=== PATIENT | male | born 1975 | race Caucasian/White ===

== ENCOUNTER 2023-10-23 22:16 | Emergency (ER) | payer MEDICAID ==
[~2023-10-23] VITALS: Ht 188 cm; Wt 136.7 kg
[2023-10-23 22:32] VITALS: BP 152/82; PULSE 76; RESP 18; O2SAT 95
== END 2023-10-24 02:11 | disposition left against medical advice (07) ==
LOC: ER 22:16
DX: H92.01 Otalgia, right ear (principal); Z53.21 Procedure and treatment not carried out due to patient leaving prior to being seen by health care provider

== ENCOUNTER 2024-04-04 22:35 | Emergency (ER) | payer MEDICAID ==
[~2024-04-04] VITALS: Ht 188 cm; Wt 135.9 kg
[2024-04-04 23:12] VITALS: BP 110/79; PULSE 91; RESP 17; TEMP 98.3; O2SAT 95
[2024-04-05] MEDS: KETOROLAC TROMETH 60MG/2ML VIAL IM ONE (02:00)
[2024-04-05] MEDS: DexAMETHasone SOD PHOS 10MG/1ML VIAL INJ IM ONE (02:00)
[2024-04-05] MEDS: predniSONE 20 MG TAB PO ONE (02:19)
[2024-04-05] MEDS ORDERED: HYDR-4902 PO (03:11)
[2024-04-05] MEDS ORDERED: METH4PAK PO (03:11)
[2024-04-05] MEDS ORDERED: METH-1182 PO (03:11)
== END 2024-04-05 03:27 | disposition home or self-care (01) ==
LOC: ER 22:35
DX: M54.16 Radiculopathy, lumbar region (principal); I10 Essential (primary) hypertension; Z88.0 Allergy status to penicillin
CPT/HCPCS: 72100; 73502; 99284; J1100; J1885; J7512

== ENCOUNTER 2024-04-10 19:54 | Emergency (ER) | payer MEDICAID ==
[~2024-04-10] VITALS: Ht 188 cm; Wt 135.5 kg
[~2024-04-10 19:54] MED LIST: METH-1182 PO; METH4PAK PO
[2024-04-10 21:10] VITALS: BP 118/87; PULSE 96; RESP 18; TEMP 98.4; O2SAT 94
--- NOTE | 2024-04-10 21:19 | DVH ---
CT LS SPINE WO CONTRAST INDICATION: : 48 old Male left radiculopathy EXAM DATE: 04/10/2024 08:45 PM COMPARISON: None RADIATION DOSE: CTDIvol: 38 mGy, DLP: 1556 mGy*cm PROCEDURE: Utilizing the CT scanner, contiguous axial scans were obtained through the lumbar spine. C oronal and sagittal reformatted images were then generated. All CT scans at this medical facility are performed using dose modulation techniques as appropriate t o a performed exam including the following: Automated exposure control was utilized; adjustment of th e MA and/or KV according to patient size; and use of iterative reconstruction technique. FINDINGS: There are 5 lumbar segments. The lumbar vertebral body heights and alignment are maintained . The intervertebral disc spaces are narrowed and degenerative. The cortical margins are intact. The paraspinal soft tissues are normal. On axial images: there is multilevel posterior disc bulge without significant narrowing of the centra l canal. Mild to moderate bilateral neural foramina narrowing is seen at L4-5 and L5-S1. Mild degener ative changes of the facet joints is noted. IMPRESSION: No acute abnormal CT findings of the lumbar spine. Mild to moderate bilateral neural foramina narrowing is seen at L4-5 and L5-S1.
--- NOTE | 2024-04-10 21:38 | ED.PDOC ---
Back pain HPI HPI Comments THIS IS A 48-YEAR-OLD MALE PRESENTS TO THE ED CHIEF COMPLAINT LEFT LOWER BACK PAIN. PATIENT WAS SEEN HERE IN THE ER YESTERDAY FOR A FALL WELL. 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 CURRENTLY AMBULATES WITH A CANE. REPORTS CHRONIC HISTORY OF LOWER BACK PAIN AND HIP PAIN. PATIENT DESCRIBES PAIN SHARP SHOOTING PAIN STARTING IN HIS LEFT LOWER BACK RADIATING LATERAL AROUND HIP INTO HIS GROIN DOWN HIS BUTTOCKS AND ALL THE WAY DOWN HIS LEG TO HIS FOOT. RATES PAIN 7/10 ON PAIN SCALE. NUMBNESS, WEAKNESS, LOSS OF BOWEL OR BLADDER CONTROL, OR SADDLE ANESTHESIA. Chief Complaint: Lower Extremity Time Seen by MD: 20:11 Reviewed Notes: Nurses Notes, Medications, Allergies Allergies: Coded Allergies: Bee Venom (Verified Allergy, Unknown, 04/10/24) Penicillins (Verified Allergy, Unknown, 04/10/24) Home Meds Active Scripts Methylprednisolone (Medrol Dosepak) 4 Mg Silas, 4 MG PO UD for 6 Days, #21 TAB UAD Prov:ARISTEO SMITHK [employer] 04/10/24 Methocarbamol (Methocarbamol) 750 Mg Tab, 1 TAB PO HS PRN for 5 Days, #5 TAB Prov:ARISTEO SMITHK [employer] 04/05/24 Methylprednisolone (Medrol Dosepak) 4 Mg Silas, 4 MG PO UD for 6 Days, #21 TAB UAD Prov:EVANGELIST SMITH [employer] 04/05/24 Information Source: Patient Mode of Arrival: Ambulatory Past Medical History PAST MEDICAL HISTORY: HTN Family History Family History: Reviewed,noncontributory to illness Social History Smoker: Non-Smoker Alcohol: Denies ETOH Use Drugs: Denies Drug Use Constitutional: denies: chills, diaphoresis, fatigue, fever, malaise, sweats, weakness, others EENTM: denies: blurred vision, double vision, ear bleeding, ear discharge, ear drainage, ear pain, ear ringing, eye pain, eye redness, hearing loss, mouth pain, mouth swelling, nasal discharge, nose bleeding, nose congestion, nose pain, photophobia, tearing, throat pain, throat swelling, voice changes, others Respiratory: denies: cough, hemoptysis, orthopnea, SOB at rest, shortness of breath, SOB with excertion, stridor, wheezing, others Cardiovascular: denies: chest pain, dizzy spells, diaphoresis, Dyspnea on exertion, edema, irregular heart beat, left arm pain, lightheadedness, pa lpitations, PND, syncope, others Gastrointestinal: denies: abdomen distended, abdominal pain, blood streaked bowels, constipated, diarrhea, dysphagia, difficulty swallowing, hematemesis, melena, nausea, poor appetite, poor fluid intake, rectal bleeding, rectal pain, vomiting, others Genitourinary: denies: burning, dysuria, flank pain, frequency, hematuria, incontinence, penile discharge, penile sore, pain, testicle pain, testicle swelling, urgency, others Neurological: denies: dizziness, fainting, headache, left sided numbness, left sided weakness, numbness, paresthesia, pre-existing deficit, right sided numbness, right sided weakness, seizure, speech problems, tingling, tremors, weakness, others Musculoskeletal: reports: back pain; denies: gout, joint pain, joint swelling, muscle pain, muscle stiffness, neck pain, others Integumetry: denies: bruises, change in color, change in hair/nails, dryness, laceration, lesions, lumps, rash, wounds, others Allergic/Immunocompromised: denies: Difficulty Healing, Frequent Infections, Hives, Itching, others Hematologic/Lymphatic: denies: anemia, blood clots, easy bleeding, easy bruising, swollen glands, others Endocrine: denies: excessive hunger, excessive sweating, excessive thirst, excessive urination, flushing, intolerance to cold, intolerance to heat, unexplained weight gain, unexplained weight loss, others Psychiatric: denies: anxiety, bipolar disorder, depression, hopeless, panic disorder, schizophrenia, sleepless, suicidal, others Physical Exam General Appearance: No Apparent Distress, Normal HEENT: Pharynx Normal Neck: Full Range of Motion, Non-Tender Respiratory: Lungs Clear, No Respiratory Distress, Normal Breath Sounds Cardiovascular: No Murmur, Normal Peripheral Pulses, Regular Rate/Rhythm Breast Exam: Deferred Gastrointestinal: Non Tender, Soft Genitalia: Deferred Pelvic: Deferred Rectal: Deferred Extremities: Normal capillary refill, Normal inspection, Normal range of motion , Non-tender, No pedal edema Musculoskeletal : Location: Bilateral (MODERATE TENDERNESS PALPATED OVER L 2 THROUGH L5 LUMBAR SPINE WITHOUT CREPITUS OR STEP-OFFS. NO NOTED ABRASIONS, LESIONS, ECCHYMOSIS OR LACERATIONS. POSITIVE STRAIGHT LEG RAISE LEFT SIDE FOLLOWING L4-L5 DERMATOME. NEGATIVE STRAIGHT LEG RIGHT SIDE. STRENGTH SENSORY MOTION INTACT. POSITIVE PEDAL PULSES.) Apperance: Normal Neurologic: Alert, senior ui developer II-XII nml as Tested, No Motor Deficits, Normal Affect, Normal Mood, No Sensory Deficits Cerebellar Function: Normal Reflexes: Normal Skin: Dry, Normal Color, Warm Lymphatic: No Adenopathy Was a procedure done? Was a procedure done?: No Back Pain Differential Dx Differential Diagnosis: Fracture, Musculoskeletal Pain X-Ray, Labs, Meds, VS Vital Signs Date Time Temp Pulse Resp B/P (MAP) Pulse Ox O2 Delivery O2 Flow Rate FiO2 04/10/24 21:10 96 18 94 Room Air 04/10/24 21:10 98.4 96 18 118/87 (97) 94 98.4 04/10/24 20:01 98.4 93 18 136/92 (107) 96 X-Ray, Labs, Meds, VS Comment LUMBAR SPINE MRI SHOWS: multilevel posterior disc bulge without significant narrowing of the central canal. Mild to moderate bilateral neural foramina narrowing is seen at L4-5 and L5-S1. Mild degenerative changes of the facet joints L4-L5, L5-S1 RADICULOPATHY LIKELY ASSOCIATED WITH MODERATE BILATERAL NEURAL FORAMINAL NARROWING. WE WILL START PATIENT ON MEDROL DOSEPAK. PATIENT REFUSED INJECTIONS AT THIS TIME. MUSCLE RELAXER ALSO SENT ADVISED PATIENT TO FILL IT FROM LAST VISIT. ADVISED PATIENT TO FOLLOW UP WITH HIS PRIMARY IN 2-3 DAYS RECOMMEND MRI IF SYMPTOMS CONTINUE. CONSIDER PAIN MANAGEMENT WELL FOR INJECTIONS. ADVISED TO RETURN TO THE ER FOR INCREASING PAIN, NUMBNESS, WEAKNESS, LOSS OF BOWEL BLADDER CONTROL, OR SADDLE ANESTHESIA. PATIENT AGREES WITH DISCHARGE PLAN OF CARE. Time of 1ST Reevaluation: 21:45 Reevaluation 1ST: Improved Patient Education/Counseling: Diagnosis, Treatment, Prognosis, Need For Follow Up Family Education/Counseling: No Family Present Departure 1 Departure Time of Disposition: 21:35 Impression: Primary Impression: Lumbar radiculopathy, acute Disposition: HOME / SELF CARE / HOMELESS Condition: Stable e-Prescriptions Methylprednisolone (Medrol Dosepak) 4 Mg Silas 4 MG PO UD for 6 Days, #21 TAB UAD Prov: EVANGELIST SMITH 04/10/24 Discharged With: Self Critical Care Note Critical Care Time?: No Stability Stability form required: EVANGELIST Perkins [facility] Apr 10, 2024 21:38
== END 2024-04-10 21:49 | disposition home or self-care (01) ==
LOC: ER 19:54
DX: M54.16 Radiculopathy, lumbar region (principal); I10 Essential (primary) hypertension; Z88.0 Allergy status to penicillin; Z88.8 Allergy status to other drugs, medicaments and biological substances; Z79.899 Other long term (current) drug therapy
CPT/HCPCS: 72131

== ENCOUNTER 2024-10-28 20:46 | Emergency (ER) | payer MEDICAID ==
[~2024-10-28] VITALS: Ht 188 cm; Wt 141.0 kg
[2024-10-28 21:39] VITALS: BP 152/85; PULSE 83; RESP 18; TEMP 98.2; O2SAT 97
--- NOTE | 2024-10-28 21:44 | ED.PDOC ---
Musculoskeletal HPI Comments 49-year-old male presents to ER with complaints of left forearm pain x1 week. Patient reports he started experiencing left forearm pain one week ago that started while he was reaching into a drawer with his left arm to pull out a "Ethernet cable". He rates his current pain an 8/10 to left forearm with radiation towards the left hand. Notes he has been taking [place] for his pain with slight relief. Patient presents to ER ambulatory, in no distress. Denies any further symptoms/complaints Chief Complaint: Upper Extremity Time Seen by MD: 21:08 Primary Care Provider: CAREY Reviewed Notes: Nurses Notes, Medications, Allergies Allergies: Coded Allergies: Bee Venom (Verified Allergy, Unknown, 04/10/24) Penicillins (Verified Allergy, Unknown, 04/10/24) Home Meds Active Scripts Methylprednisolone (Medrol Dosepak) 4 Mg Silas, 4 MG PO UD for 6 Days, #21 TAB UAD Prov:ARISTEO SMITHK [facility] 04/10/24 Methocarbamol (Methocarbamol) 750 Mg Tab, 1 TAB PO HS PRN for 5 Days, #5 TAB Prov:SARAHEVANGELIST Stewart [facility] 04/05/24 Methylprednisolone (Medrol Dosepak) 4 Mg Silas, 4 MG PO UD for 6 Days, #21 TAB UAD Prov:EVANGELIST SMITH [facility] 04/05/24 Information Source: Patient Mode of Arrival: Ambulatory Past Medical History PAST MEDICAL HISTORY: Cancer (KIDNEY), COPD, HTN Surgical History: Denies all surgeries Family History Family History: Unknown Social History Smoker: Non-Smoker Alcohol: Denies ETOH Use Drugs: Denies Drug Use Lives In: Home Constitutional: denies: chills, diaphoresis, fatigue, fever, malaise, sweats, weakness, others EENTM: denies: blurred vision, double vision, ear bleeding, ear discharge, ear drainage, ear pain, ear ringing, eye pain, eye redness, hearing loss, mouth pain, mouth swelling, nasal discharge, nose bleeding, nose congestion, nose pain, photophobia, tearing, throat pain, throat swelling, voice changes, others Respiratory: denies: cough, hemoptysis, orthopnea, SOB at rest, shortness of breath, SOB with excertion, stridor, wheezing, others Cardiovascular: denies: chest pain, dizzy spells, diaphoresis, Dyspnea on exertion, edema, irregular heart beat, left arm pain, lightheadedness, palpita tions, PND, syncope, others Gastrointestinal: denies: abdomen distended, abdominal pain, blood streaked shelia wels, constipated, diarrhea, dysphagia, difficulty swallowing, hematemesis, melena, nausea, poor appetite, poor fluid intake, rectal bleeding, rectal pain, vomiting, others Genitourinary: denies: burning, dysuria, flank pain, frequency, hematuria, incontinence, penile discharge, penile sore, pain, testicle pain, testicle swelling, urgency, others Neurological: denies: dizziness, fainting, headache, left sided numbness, left sided weakness, numbness, paresthesia, pre-existing deficit, right sided numbness, right sided weakness, seizure, speech problems, tingling, tremors, weakness, others Musculoskeletal: reports: others (As stated in HPI) Integumetry: denies: bruises, change in color, change in hair/nails, dryness, laceration, lesions, lumps, rash, wounds, others Allergic/Immunocompromised: denies: Difficulty Healing, Frequent Infections, Hives, Itching, others Hematologic/Lymphatic: denies: anemia, blood clots, easy bleeding, easy bruising, swollen glands, others Endocrine: denies: excessive hunger, excessive sweating, excessive thirst, excessive urination, flushing, intolerance to cold, intolerance to heat, unexplained weight gain, unexplained weight loss, others Psychiatric: denies: anxiety, bipolar disorder, depression, hopeless, panic disorder, schizophrenia, sleepless, suicidal, others Physical Exam General Appearance: No Apparent Distress HEENT: PERRL/EOMI Neck: Full Range of Motion, Non-Tender, Normal Respiratory: Chest Non-Tender, Lungs Clear, No Accessory Muscle Use, No Respiratory Distress, Normal Breath Sounds Cardiovascular: No Murmur, No Gallop, Regular Rate/Rhythm Breast Exam: Deferred Gastrointestinal: NOT DONE Genitalia: Deferred Pelvic: Deferred Rectal: Deferred Extremities: Normal capillary refill, Normal range of motion Musculoskeletal : Extremity Location: Forearm (Slight TTP centralized to left forearm noted. No bony tenderness/skin changes/deformity noted. Pulses intact) Neurologic: Alert, No Motor Deficits, Normal Affect, Normal Mood, No Sensory Deficits Cerebellar Function: Normal Reflexes: Normal Skin: Dry, Normal Color, Warm Peripheral Pulses: 2+ Radial (R), 2+ Radial (L), 2+ Brachial (R), 2+ Brachial (L) Lymphatic: No Adenopathy Was a procedure done? Was a procedure done?: No Sedation Sedation?: No Differential Diagnosis EXT Differential Diagnosis: Fracture, Dislocation, Neurovascular injury X-Ray, Labs, Meds, VS Vital Signs Date Time Temp Pulse Resp B/P (MAP) Pulse Ox O2 Delivery O2 Flow Rate FiO2 10/28/24 21:39 98.2 83 18 152/85 (107) 97 98.2 10/28/24 21:22 98.2 83 18 152/85 (107) 97 98.2 Patient neurovascularly intact Advised on elevation and alternate ice on/off as needed for pain Advised to follow up with PCP in 1-2 days Patient verbalized understanding and agreeable with current plan of care Advised to return to ER immediately if symptoms worsen Time of 1ST Reevaluation: 21:20 Reevaluation 1ST: N/A Patient Education/Counseling: Diagnosis, Treatment, Prognosis, Need For Follow Up Family Education/Counseling: No Family Present Departure 1 Departure Time of Disposition: 21:42 Impression: Primary Impression: Muscle strain of left forearm Qualified Codes: S56.912A - Strain of unspecified muscles, fascia and tendons at forearm level, left arm, initial encounter Disposition: HOME / SELF CARE / HOMELESS Condition: Stable Discharged With: Self Critical Care Note Critical Care Time?: No Stability Stability form required: No Heart Score Heart Score: Heart Score Response (Comments) Value History N/A 0 EKG N/A 0 Age N/A 0 Risk Factors N/A 0 Troponin N/A 0 Total 0 JOSE ALFREDO MALDONADO October 28, 2024 21:44
== END 2024-10-28 21:49 | disposition home or self-care (01) ==
LOC: ER 20:46
DX: S56.912A Strain of unspecified muscles, fascia and tendons at forearm level, left arm, initial encounter (principal); I10 Essential (primary) hypertension; J44.9 Chronic obstructive pulmonary disease, unspecified; Z85.528 Personal history of other malignant neoplasm of kidney; Z88.0 Allergy status to penicillin; Z91.030 Bee allergy status; Z79.899 Other long term (current) drug therapy; X58.XXXA Exposure to other specified factors, initial encounter; Y93.89 Activity, other specified; Y92.89 Other specified places as the place of occurrence of the external cause; Y99.8 Other external cause status

== ENCOUNTER 2025-01-06 15:00 | Outpatient (CLI) | payer MEDICAID ==
[2025-01-06] MEDS ORDERED: ALBUTEROL SULF 2.5 MG/0.5ML(0.5%) NEB SOLN ONE (15:20)
== END 2025-01-06 17:00 | disposition home or self-care (01) ==
LOC: RT 15:00
PROVIDERS: ATTEND Internal Medicine Pulmonary Disease
DX: J44.9 Chronic obstructive pulmonary disease, unspecified (principal); R06.00 Dyspnea, unspecified
CPT/HCPCS: 94010; 94618; 94729

== ENCOUNTER 2025-01-24 21:02 | Emergency (ER) | payer MEDICAID ==
[~2025-01-24] VITALS: Ht 188 cm; Wt 139.9 kg
--- NOTE | 2025-01-24 22:04 | DVH ---
CLINICAL INDICATION: pain TECHNIQUE: 2 radiographic views of the lumbar spine were obtained. Comparison: CT LS SPINE WO CONTRAST on DOS: 04/10/24, XY LUMBAR SPINE 3 VIEW on DOS: 04/05/24 FINDINGS/IMPRESSION: Bony spondylosis noted throughout the lumbar spine with degenerative disc changes. There are no compressed vertebra.
[2025-01-24] MEDS ORDERED: TIZA-142 PO (22:34)
--- NOTE | 2025-01-24 22:34 | ED.PDOC ---
Back pain HPI Chief Complaint: Back Pain Time Seen by MD: 21:27 Primary Care Provider: CAREY Reviewed Notes: Nurses Notes, Medications, Allergies Allergies: Coded Allergies: Bee Venom (Verified Allergy, Unknown, 04/10/24) Penicillins (Verified Allergy, Unknown, 04/10/24) Home Meds Active Scripts Methylprednisolone (Medrol Dosepak) 4 Mg Silas, 4 MG PO UD for 6 Days, #21 TAB UAD Prov:EVANGELIST SMITH [employer] 04/10/24 Methocarbamol (Methocarbamol) 750 Mg Tab, 1 TAB PO HS PRN for 5 Days, #5 TAB Prov:EVANGELIST SMITH [employer] 04/05/24 Methylprednisolone (Medrol Dosepak) 4 Mg Silas, 4 MG PO UD for 6 Days, #21 TAB UAD Prov:EVANGELIST SMITH [employer] 04/05/24 Information Source: Patient Mode of Arrival: Ambulatory Past Medical History PAST MEDICAL HISTORY: Cancer, COPD, HTN Surgical History: Denies all surgeries Family History Family History: Unknown Social History Smoker: Non-Smoker Alcohol: Denies ETOH Use Drugs: Denies Drug Use Lives In: Home X-Ray, Labs, Meds, VS Vital Signs Date Time Temp Pulse Resp B/P (MAP) Pulse Ox O2 Delivery O2 Flow Rate FiO2 01/24/25 21:13 98.7 87 19 138/88 96 98.7 Reevaluation 1ST: Unchanged Reevaluation 2ND: Improved Patient Education/Counseling: Diagnosis, Treatment, Prognosis, Need For Follow Up Family Education/Counseling: Diagnosis, Treatment, Prognosis, Need For Follow Up SEPSIS Sepsis Screen Date sepsis recognized/suspect: Jan 24, 2025 Time Sepsis recognized/suspect: 2109 Recent Procedure: No On Antibiotic Therapy: No Respiratory Rate >20: No Heart Rate >90: No Temp<36 C (96.8 F) or >38.3 C: No SBP <90 or MAP <65 mmHG: No New Acute Mental Status Change: No Is the patient on CPAP, BIPAP,: No Physician Orders Lumbar Spine 3 View (01/24/25 21:33) Vital Signs Date Time Temp Pulse Resp B/P (MAP) Pulse Ox O2 Delivery O2 Flow Rate FiO2 01/24/25 21:13 98.7 87 19 138/88 96 98.7 Departure 1 Departure Time of Disposition: 22:33 Impression: Primary Impression: Lumbar sprain Qualified Codes: S33.5XXA - Sprain of ligaments of lumbar spine, initial encounter Additional Impression: Musculoskeletal pain Disposition: HOME / SELF CARE / HOMELESS Condition: Stable e-Prescriptions Tizanidine Hydrochloride (Tizanidine Hcl) 4 Mg Tab 4 MG PO BID PRN for 14 Days, #28 TAB Prov: EVANGELIST SMITH 01/24/25 Methylprednisolone (Medrol Dosepak) 4 Mg Silas 4 MG PO UD for 6 Days, #21 TAB 1 Refill UAD Prov: EVANGELIST SMITH 01/24/25 Discharged With: Self Critical Care Note Critical Care Time?: No Stability Stability form required: No EVANGELIST SMITH Jan 24, 2025 22:34
[2025-01-24] MEDS: KETOROLAC TROMETH 60MG/2ML VIAL IM ONE (23:29)
[2025-01-24] MEDS: HYDROcodone-ACET 5/325MG TAB PO ONE (23:29)
[2025-01-24 23:40] VITALS: BP 131/81; PULSE 81; RESP 18; TEMP 98.2; O2SAT 96
== END 2025-01-24 23:43 | disposition home or self-care (01) ==
LOC: ER 21:02
DX: S33.5XXA Sprain of ligaments of lumbar spine, initial encounter (principal); M79.18 Myalgia, other site; Z91.030 Bee allergy status; Z88.0 Allergy status to penicillin; X58.XXXA Exposure to other specified factors, initial encounter; Y93.89 Activity, other specified; Y92.89 Other specified places as the place of occurrence of the external cause; Y99.8 Other external cause status
CPT/HCPCS: 72100; 96372; 99284; J1100; J1885

== ENCOUNTER 2025-02-24 22:01 | Emergency (ER) | payer MEDICAID ==
[~2025-02-24] VITALS: Ht 188 cm; Wt 139.2 kg
--- NOTE | 2025-02-24 22:24 | ECG ---
[facility] Test Date: 2025-02-24 Test Time: 22:12:28 Pat Name: MIHAI DEL ROSARIO Department: Room: Gender: M Brim Curler: JANIE : 1975 Requested By: LYNDA DRAKE Order Number: [id number] Reading MD: Measurements Intervals [place] Rate: 85 P: 58 MN: 153 QRS: -28 QRSD: 85 T: 51 QT: 342 QTc: 407 Interpretive Statements Sinus rhythm Borderline left axis deviation Low voltage, precordial leads Please click the below link to view image of tracing.
--- NOTE | 2025-02-24 22:37 | ED.PDOC ---
History of Present Illness HPI Comments This is a 49-year-old male with COPD on 2 L home oxygen, asthma, chronic back pain who presented to the ER for the evaluation of chest pain, patient reports chest pain left-sided, sharp, radiating to the left arm and left leg for the past 5 hours, intensity 10/10 originally, now 2/10. Denies shortness or breath, nausea, diaphoresis at this time. He reports he has chest pain in the past, for which he was seeing a ap operator and was taking aspirin. Patient took aspirin and nitroglycerin which relieved his pain. On arrival to the ER, patient was vitally stable, on room air, chest pain unrelated to exertion, patient was seen ambulating outside ER without assistance or discomfort. Patient seen and examined, sinus rhythm, no tenderness to palpation, decreased breath sounds bilaterally, 1+ swelling in the lower extremities. EKG completed, shows normal sinus rhythm, troponins negative. BNP unremarkable. Aspirin atorvastatin ordered. Chief Complaint: Chest Pain Time Seen by MD: 22:10 Primary Care Provider: CAREY Allergies: Coded Allergies: Bee Venom (Verified Allergy, Unknown, 04/10/24) Penicillins (Verified Allergy, Unknown, 04/10/24) Home Meds Active Scripts Methylprednisolone (Medrol Dosepak) 4 Mg Silas, 4 MG PO UD for 6 Days, #21 TAB 1 Refill UAD Prov:SARAHEVANGELIST Stewart [facility] 01/24/25 Methylprednisolone (Medrol Dosepak) 4 Mg Silas, 4 MG PO UD for 6 Days, #21 TAB UAD Prov:EVANGELIST SMITH [facility] 04/10/24 Methocarbamol (Methocarbamol) 750 Mg Tab, 1 TAB PO HS PRN for 5 Days, #5 TAB Prov:SARAHEVANGELIST Stewart [facility] 04/05/24 Methylprednisolone (Medrol Dosepak) 4 Mg Silas, 4 MG PO UD for 6 Days, #21 TAB UAD Prov:ARISTEO SMITHK [facility] 04/05/24 Information Source: Patient Mode of Arrival: Ambulatory Severity: Mild Duration: Hours Past Medical History PAST MEDICAL HISTORY: Cancer, COPD, HTN Surgical History: Denies all surgeries Family History Family History: Unknown Social History Smoker: Non-Smoker Alcohol: Denies ETOH Use Drugs: Denies Drug Use Lives In: Home Constitutional: denies: chills, diaphoresis, fatigue, fever, malaise, sweats, weakness, others EENTM: denies: blurred vision, double vision, ear bleeding, ear discharge, ear drainage, ear pain, ear ringing, eye pain, eye redness, hearing loss, mouth pain, mouth swelling, nasal discharge, nose bleeding, nose congestion, nose pain, photophobia, tearing, throat pain, throat swelling, voice changes, others Respiratory: denies: cough, hemoptysis, orthopnea, SOB at rest, shortness of breath, SOB with excertion, stridor, wheezing, others Cardiovascular: reports: chest pain Gastrointestinal: denies: abdomen distended, abdominal pain, blood streaked bowels, constipated, diarrhea, dysphagia, difficulty swallowing, hematemesis, melena, nausea, poor appetite, poor fluid intake, rectal bleeding, rectal pain, vomiting, others Genitourinary: denies: burning, dysuria, flank pain, frequency, hematuria, incontinence, penile discharge, penile sore, pain, testicle pain, testicle swelling, urgency, others Neurological: denies: dizziness, fainting, headache, left sided numbness, left sided weakness, numbness, paresthesia, pre-existing deficit, right sided numbness, right sided weakness, seizure, speech problems, tingling, tremors, weakness, others Musculoskeletal: denies: back pain, gout, joint pain, joint swelling, muscle pain, muscle stiffness, neck pain, others Integumetry: denies: bruises, change in color, change in hair/nails, dryness, laceration, lesions, lumps, rash, wounds, others Allergic/Immunocompromised: denies: Difficulty Healing, Frequent Infections, Hives, Itching, others Hematologic/Lymphatic: denies: anemia, blood clots, easy bleeding, easy bruising, swollen glands, others Endocrine: denies: excessive hunger, excessive sweating, excessive thirst, excessive urination, flushing, intolerance to cold, intolerance to heat, unexplained weight gain, unexplained weight loss, others Psychiatric: denies: anxiety, bipolar disorder, depression, hopeless, panic disorder, schizophrenia, sleepless, suicidal, others Physical Exam General Appearance: No Apparent Distress, Normal HEENT: Normal ENT Inspection, Pharynx Normal, TMs Normal Neck: Full Range of Motion, Non-Tender, Normal, Normal Inspection Respiratory: Chest Non-Tender, Lungs Clear, No Accessory Muscle Use, No Respiratory Distress, Normal Breath Sounds Cardiovascular: No JVD, No Murmur, Normal Peripheral Pulses, Regular Rate/Rhythm, Other (1+ pitting edema bilaterally) Breast Exam: Deferred Gastrointestinal: No Organomegaly, Non Tender, No Pulsatile Mass, Normal Bowel Sounds, Soft Genitalia: Deferred Pelvic: Deferred Rectal: Deferred Extremities: No calf tenderness, Normal capillary refill, Normal inspection, Normal range of motion, Non-tender, Pedal edema Musculoskeletal : Apperance: Normal Neurologic: Alert, collection agent II-XII nml as Tested, No Motor Deficits, Normal Affect, Normal Mood, No Sensory Deficits Cerebellar Function: Normal Reflexes: Normal Skin: Dry, Normal Color, Warm Lymphatic: No Adenopathy Was a procedure done? Was a procedure done?: No EKG EKG : Comments Normal sinus rhythm Differential Dx Considerations may include: ACS/pericarditis/PE/musculoskeletal chest pain X-Ray, Labs, Meds, VS Vital Signs Date Time Temp Pulse Resp B/P (MAP) Pulse Ox O2 Delivery O2 Flow Rate FiO2 02/24/25 23:01 84 02/24/25 22:12 85 02/24/25 22:02 98.8 94 18 160/96 96 98.8 Lab Test 02/24/25 23:20 02/24/25 22:18 Range/Units Troponin I High Sensitivity < 3 L < 3 L </=54 ng/L White Blood Count 8.9 4.4-10.8 10^3/uL Red Blood Count 5.09 4.5-5.90 10^6/uL Hemoglobin 15.9 13.5-17.5 g/dL Hematocrit 46.4 41.0-53.0 % Mean Corpuscular Volume 91.1 80.0-100.0 fL Mean Corpuscular Hemoglobin 31.2 28.0-32.0 pg Mean Corpuscular Hemoglobin Concent 34.3 32.0-36.0 g/dL Red Cell Distribution Width 13.9 11.8-14.3 % Platelet Count 262 140-450 10^3/uL Mean Platelet Volume 8.3 6.9-10.8 fL Neutrophils (%) (Auto) 64.0 37.0-80.0 % Lymphocytes (%) (Auto) 25.0 10.0-50.0 % Monocytes (%) (Auto) 7.9 0.0-12.0 % Eosinophils (%) (Auto) 2.3 0.0-7.0 % Basophils (%) (Auto) 0.8 0.0-2.0 % Neutrophils # (Auto) 5.7 1.6-8.6 10 ^3/uL Lymphocytes # (Auto) 2.2 0.4-5.4 10 ^3/uL Monocytes # (Auto) 0.7 0-1.3 10 ^3/uL Eosinophils # (Auto) 0.2 0-0.8 10 ^3/uL Basophils # (Auto) 0.1 0-0.2 10 ^3/uL Nucleated Red Blood Cells 0.1 % Sodium Level 142 136-145 mmol/L Potassium Level 3.9 3.5-5.1 mmol/L Chloride Level 105 98-107 mmol/L Carbon Dioxide Level 26 20-31 mmol/L Anion Gap 11 5-15 Blood Urea Nitrogen 11 9-23 mg/dL Creatinine 1.11 0.700-1.30 mg/dL Glomerular Filtration Rate Calc 82 >90 mL/min BUN/Creatinine Ratio 9.9 L 10.0-20.0 Serum Glucose 96 74-106 mg/dL Calcium Level 9.2 8.7-10.4 mg/dL B-Type Natriuretic Peptide 9.51 0-100 pg/mL Time of 1ST Reevaluation: 00:00 Reevaluation 1ST: Resolved Patient Education/Counseling: Diagnosis, Treatment, Need For Follow Up Family Education/Counseling: No Family Present SEPSIS Sepsis Screen Date sepsis recognized/suspect: Feb 24, 2025 Time Sepsis recognized/suspect: 2202 Recent Procedure: No On Antibiotic Therapy: No Respiratory Rate >20: No Heart Rate >90: Yes Temp<36 C (96.8 F) or >38.3 C: No SBP <90 or MAP <65 mmHG: No New Acute Mental Status Change: No Is the patient on CPAP, BIPAP,: No Physician Orders Electrocardigram (02/24/25 23:21) Electrocardigram (02/25/25 01:21) Chest Xray 1 View (02/24/25 22:36) Vital Signs Date Time Temp Pulse Resp B/P (MAP) Pulse Ox O2 Delivery O2 Flow Rate FiO2 02/24/25 23:01 84 02/24/25 22:12 85 02/24/25 22:02 98.8 94 18 160/96 96 98.8 Laboratory Tests Test 02/24/25 22:18 White Blood Count 8.9 10^3/uL (4.4-10.8) Departure 1 Departure Time of Disposition: 01:00 Impression: Primary Impression: Chest pain Additional Impression: Musculoskeletal chest pain Disposition: 01 HOME / SELF CARE / HOMELESS Condition: Stable Referrals Follow up with primary care physician Discharged With: Self Critical Care Note Critical Care Time?: No Stability Stability form required: LYNDA Rashid RESIDENT Feb 24, 2025 22:37
[2025-02-24 22:51] LABS: Hematocrit 46.4 % (41.0-53.0); Hemoglobin 15.9 g/dL (13.5-17.5); Mean Corpuscular Hemoglobin 31.2 pg (28.0-32.0); Mean Corpuscular Volume 91.1 fL (80.0-100.0); Nucleated Red Blood Cells % 0.1 %
[2025-02-24 22:59] LABS: Chloride 105 mmol/L (98-107); Potassium 3.9 mmol/L (3.5-5.1); Sodium 142 mmol/L (136-145)
[2025-02-24 23:00] LABS: Anion Gap 11 (5-15); Carbon Dioxide 26 mmol/L (20-31)
[2025-02-24 23:01] LABS: Calcium 9.2 mg/dL (8.7-10.4)
[2025-02-24 23:05] LABS: Glucose 96 mg/dL (74-106)
[2025-02-24 23:06] LABS: BUN/Creatinine Ratio 9.9 (10.0-20.0); Blood Urea Nitrogen 11 mg/dL (9-23)
--- NOTE | 2025-02-24 23:07 | DVH ---
CHEST RADIOGRAPH Indication: chest pain Technique: Single frontal view of the chest was obtained COMPARISON: XR CHEST 1 VIEW on DOS: 02/16/25 FINDINGS: Mild streaky atelectatic changes at the left lung base. Otherwise, lungs and pleural spaces are ciro r. Cardiac silhouette and laurent are within normal limits. Bones and soft tissues demonstrate no signif icant abnormality. IMPRESSION: 1. No acute disease.
[2025-02-25] MEDS ORDERED: MORPHINE SULFATE INJ 2 MG/ml SYRG IM ONE (00:30)
[2025-02-25 01:00] VITALS: BP 153/95; TEMP 98.3
[2025-02-25 01:08] VITALS: PULSE 81; RESP 16; O2SAT 97
[2025-02-25] MEDS: ATORVASTATIN 20 MG TAB PO ONE (01:22)
[2025-02-25] MEDS: ASPirin-EC 81 mg tab PO ONE (01:22)
--- NOTE | 2025-02-25 05:38 | ECG ---
[facility] Test Date: 2025-02-24 Test Time: 23:01:48 Pat Name: MIHAI DEL ROSARIO Department: Room: Gender: M Certified Pest Control Technician: NATE : 1975 Requested By: LYNDA DRAKE Order Number: [id number] Reading MD: Measurements Intervals [place] Rate: 84 P: 59 ME: 154 QRS: -33 QRSD: 83 T: 56 QT: 333 QTc: 394 Interpretive Statements Sinus rhythm Left axis deviation Low voltage, precordial leads Please click the below link to view image of tracing.
== END 2025-02-25 01:30 | disposition home or self-care (01) ==
LOC: ER 22:01
DX: R07.89 Other chest pain (principal); R06.02 Shortness of breath; I10 Essential (primary) hypertension; J44.9 Chronic obstructive pulmonary disease, unspecified; Z88.0 Allergy status to penicillin; Z91.030 Bee allergy status; Z99.81 Dependence on supplemental oxygen
CPT/HCPCS: 36415; 71045; 80048; 83880; 84484; 85025; 93005

== ENCOUNTER 2025-03-15 19:05 | Emergency (ER) | payer MEDICAID ==
[~2025-03-15] VITALS: Ht 188 cm; Wt 139.7 kg
--- NOTE | 2025-03-15 19:51 | DVH ---
CHEST RADIOGRAPH Indication: SOB Technique: Single frontal view of the chest was obtained Comparison: XY CHEST XRAY 1 VIEW on DOS: 02/24/25, XR CHEST 1 VIEW on DOS: 02/16/25 FINDINGS: Lines and Tubes: None Lungs: No focal consolidation. Azygous lobe right upper lung field with questionable hazy infiltrate involving the azygous lobe however unchanged from 02/24/2025. Pleura: No effusion. No pneumothorax. Cardiomediastinal contours: Unremarkable Bones: No acute osseous abnormality. IMPRESSION: 1. No acute cardiopulmonary disease. 2. No significant change from 02/24/2025
[2025-03-15 19:53] LABS: Hematocrit 48.5 % (41.0-53.0); Hemoglobin 16.2 g/dL (13.5-17.5); Mean Corpuscular Hemoglobin 30.8 pg (28.0-32.0); Mean Corpuscular Volume 92.2 fL (80.0-100.0); Nucleated Red Blood Cells % 0.1 %
[2025-03-15 20:09] LABS: Alanine Aminotransferase 28 U/L (7-40); Albumin 4.8 g/dL (3.2-4.8); Alkaline Phosphatase 56 U/L (46-116); Anion Gap 8 (5-15); BUN/Creatinine Ratio 11.0 (10.0-20.0); Bilirubin, Total 0.4 mg/dL (0.2-1.0); Blood Urea Nitrogen 12 mg/dL (9-23); Calcium 9.0 mg/dL (8.7-10.4); Carbon Dioxide 30 mmol/L (20-31); Chloride 105 mmol/L (98-107); Magnesium 2.1 mg/dL (1.6-2.6); Sodium 143 mmol/L (136-145); Total Protein 7.3 g/dL (5.7-8.2)
[2025-03-15 20:16] LABS: Glucose 114 mg/dL (74-106); Potassium 3.2 mmol/L (3.5-5.1)
[2025-03-15] MEDS ORDERED: LISI20TA56 PO (20:34)
[2025-03-15] MEDS ORDERED: POTA-228 PO (20:34)
--- NOTE | 2025-03-15 20:41 | ED.PDOC ---
History of Present Illness HPI Comments 49 y/o M presents with c/c of dizziness, phlegm production, left arm and ankle pain, and generalized weakness. Patient is a poor historian. He reports on returning to the ED for ongoing symptoms following his previous visit. Patient also mentions on believing symptoms are exacerbated from his blood pressure medication, Lisinopril, which has ceased taking for over the past 2x days. Denies any chest pain, shortness of breath, or further acute symptoms. Chief Complaint: High Blood Pressure Time Seen by MD: 20:00 Primary Care Provider: CAREY Reviewed Notes: Nurses Notes, Medications, Allergies Allergies: Coded Allergies: Bee Venom (Verified Allergy, Unknown, 04/10/24) Penicillins (Verified Allergy, Unknown, 04/10/24) Home Meds Active Scripts Lisinopril (Lisinopril) 20 Mg Tab, 1 TAB PO DAILY, #90 TAB 1 Refill Prov:ALFREDA SHANNON MD 03/15/25 Potassium Chloride (Potassium Chloride ER) 10 Meq Tab, 10 MEQ PO BID for 60 Days, #120 TAB Prov:ALFREDA SHANNON MD 03/15/25 Methylprednisolone (Medrol Dosepak) 4 Mg Silas, 4 MG PO UD for 6 Days, #21 TAB 1 Refill UAD Prov:EVANGELIST SMITH 01/24/25 Methylprednisolone (Medrol Dosepak) 4 Mg Silas, 4 MG PO UD for 6 Days, #21 TAB UAD Prov:EVANGELIST SMITH 04/10/24 Methocarbamol (Methocarbamol) 750 Mg Tab, 1 TAB PO HS PRN for 5 Days, #5 TAB Prov:EVANGELIST SMITH 04/05/24 Methylprednisolone (Medrol Dosepak) 4 Mg Silas, 4 MG PO UD for 6 Days, #21 TAB UAD Prov:EVANGELIST SMITHP 04/05/24 Mode of Arrival: Ambulatory Severity: Moderate Timing: Days Duration: Since onset Prehospital treatment: None Past Medical History PAST MEDICAL HISTORY: Cancer, COPD (emphysema ), HTN Past Medical History (Other): Sleep apnea Surgical History: Denies all surgeries Family History Family History: Unknown Social History Smoker: Non-Smoker Alcohol: Denies ETOH Use Drugs: Denies Drug Use Lives In: Home All Other Systems: Reviewed and Negative (Comprehensive review of systems are negative unless stated in HPI) Physical Exam General Appearance: Mild Distress, Obese HEENT: Normal ENT Inspection, Pharynx Normal, TMs Normal Neck: Full Range of Motion, Non-Tender, Normal, Normal Inspection Respiratory: Chest Non-Tender, Lungs Clear, No Accessory Muscle Use, No Respiratory Distress, Normal Breath Sounds Cardiovascular: No Edema, No JVD, No Murmur, No Gallop, Normal Peripheral Pulses, Regular Rate/Rhythm Breast Exam: Deferred Gastrointestinal: No Organomegaly, Non Tender, No Pulsatile Mass, Normal Bowel Sounds, Soft Genitalia: Deferred Pelvic: Deferred Rectal: Deferred Extremities: No calf tenderness, Normal capillary refill, Normal inspection, Normal range of motion, Non-tender, No pedal edema Musculoskeletal : Apperance: Normal Neurologic: Alert, frame trimmer II-XII nml as Tested, No Motor Deficits, Normal Affect, Normal Mood, No Sensory Deficits Cerebellar Function: Normal Reflexes: Normal Skin: Dry, Normal Color, Warm Lymphatic: No Adenopathy Was a procedure done? Was a procedure done?: No Differential Dx Considerations may include: hypertension, dehydration, electrolyte imbalance, medication noncompliance, CVA, TIA, URI, vertigo, among others X-Ray, Labs, Meds, VS Vital Signs Date Time Temp Pulse Resp B/P (MAP) Pulse Ox O2 Delivery O2 Flow Rate FiO2 03/15/25 21:44 Room Air* 0 21 03/15/25 21:24 97.8 88 16 125/80 (95) 94 97.8 03/15/25 19:06 98.0 107 15 119/77 96 98.0 Lab Test 03/15/25 20:36 03/15/25 19:35 Range/Units Troponin I High Sensitivity < 3 L 3 L </=54 ng/L White Blood Count 11.2 H 4.4-10.8 10^3/uL Red Blood Count 5.26 4.5-5.90 10^6/uL Hemoglobin 16.2 13.5-17.5 g/dL Hematocrit 48.5 41.0-53.0 % Mean Corpuscular Volume 92.2 80.0-100.0 fL Mean Corpuscular Hemoglobin 30.8 28.0-32.0 pg Mean Corpuscular Hemoglobin Concent 33.4 32.0-36.0 g/dL Red Cell Distribution Width 14.2 11.8-14.3 % Platelet Count 269 140-450 10^3/uL Mean Platelet Volume 8.5 6.9-10.8 fL Neutrophils (%) (Auto) 63.2 37.0-80.0 % Lymphocytes (%) (Auto) 28.0 10.0-50.0 % Monocytes (%) (Auto) 6.8 0.0-12.0 % Eosinophils (%) (Auto) 0.9 0.0-7.0 % Basophils (%) (Auto) 1.1 0.0-2.0 % Neutrophils # (Auto) 7.1 1.6-8.6 10 ^3/uL Lymphocytes # (Auto) 3.1 0.4-5.4 10 ^3/uL Monocytes # (Auto) 0.8 0-1.3 10 ^3/uL Eosinophils # (Auto) 0.1 0-0.8 10 ^3/uL Basophils # (Auto) 0.1 0-0.2 10 ^3/uL Nucleated Red Blood Cells 0.1 % Sodium Level 143 136-145 mmol/L Potassium Level 3.2 L 3.5-5.1 mmol/L Chloride Level 105 98-107 mmol/L Carbon Dioxide Level 30 20-31 mmol/L Anion Gap 8 5-15 Blood Urea Nitrogen 12 9-23 mg/dL Creatinine 1.09 0.700-1.30 mg/dL Glomerular Filtration Rate Calc 84 >90 mL/min BUN/Creatinine Ratio 11.0 10.0-20.0 Serum Glucose 114 H 74-106 mg/dL Calcium Level 9.0 8.7-10.4 mg/dL Magnesium Level 2.1 1.6-2.6 mg/dL Total Bilirubin 0.4 0.2-1.0 mg/dL Aspartate Amino Transferase (AST) 22 13-40 U/L Alanine Aminotransferase (ALT) 28 7-40 U/L Alkaline Phosphatase 56 46-116 U/L B-Type Natriuretic Peptide 22.62 0-100 pg/mL Total Protein 7.3 5.7-8.2 g/dL Albumin 4.8 3.2-4.8 g/dL Current Medications Medications (Trade) Dose Ordered Sig/Radha Route Start Time Stop Time Status Last Admin Potassium Chloride (Klor-Con Tablet) 20 meq ONCE ONCE PO 03/15/25 20:45 03/15/25 20:46 DC 03/15/25 21:23 Time of 1ST Reevaluation: 20:30 Reevaluation 1ST: Unchanged Patient Education/Counseling: Diagnosis, Treatment, Need For Follow Up Family Education/Counseling: No Family Present SEPSIS Sepsis Screen Date sepsis recognized/suspect: Mar 15, 2025 Time Sepsis recognized/suspect: 1908 Recent Procedure: No On Antibiotic Therapy: No Respiratory Rate >20: No Heart Rate >90: No Temp<36 C (96.8 F) or >38.3 C: No SBP <90 or MAP <65 mmHG: No New Acute Mental Status Change: No Is the patient on CPAP, BIPAP,: No Physician Orders Electrocardigram (03/15/25 19:18) Chest Xray 1 View (03/15/25 19:18) Vital Signs Date Time Temp Pulse Resp B/P (MAP) Pulse Ox O2 Delivery O2 Flow Rate FiO2 03/15/25 21:44 Room Air* 0 21 03/15/25 21:24 97.8 88 16 125/80 (95) 94 97.8 03/15/25 19:06 98.0 107 15 119/77 96 98.0 Laboratory Tests Test 03/15/25 19:35 White Blood Count 11.2 10^3/uL (4.4-10.8) H Medications Medications Dose Ordered Sig/Radha Route Start Time Stop Time Status Last Admin Dose Admin Potassium Chloride 20 meq ONCE ONCE PO 03/15/25 20:45 03/15/25 20:46 DC 03/15/25 21:23 Departure 1 Departure Time of Disposition: 22:00 Impression: Primary Impression: Hypokalemia Additional Impression: Hypertension Disposition: HOME / SELF CARE / HOMELESS Condition: Stable Additional Instructions: Your potassium was a little low 3.2. Otherwise your lab results were reassuring. Your Chest xray showed: IMPRESSION: 1. No acute cardiopulmonary disease. 2. No significant change from 02/24/2025 Follow up with your primary physician Return to the Emergency Department for any worsening symptoms or concerns e-Prescriptions Lisinopril (Lisinopril) 20 Mg Tab 1 TAB PO DAILY, #90 TAB 1 Refill Prov: ALFREDA SHANNON MD 03/15/25 Potassium Chloride (Potassium Chloride ER) 10 Meq Tab 10 MEQ PO BID for 60 Days, #120 TAB Prov: ALFREDA SHANNON MD 03/15/25 Discharged With: Self Critical Care Note Critical Care Time?: No Stability Stability form required: No Heart Score Heart Score: Heart Score Response (Comments) Value History N/A 0 EKG N/A 0 Age N/A 0 Risk Factors N/A 0 Troponin N/A 0 Total 0 I personally scribed for ALFREDA SHANNON MD ([email or web address]) on 03/15/25 at 20:41. Electronically submitted by Catrachito Simental ([email or web address]). ALFREDA SHANNON MD Mar 15, 2025 20:41
[2025-03-15] MEDS: POTASSIUM CHL 20 Meq TABLET PO ONE (21:23)
[2025-03-15 21:24] VITALS: BP 125/80; PULSE 88; RESP 16; TEMP 97.8; O2SAT 94
== END 2025-03-15 21:44 | disposition home or self-care (01) ==
LOC: ER 19:05
DX: E87.6 Hypokalemia (principal); I10 Essential (primary) hypertension; Z88.0 Allergy status to penicillin; Z79.899 Other long term (current) drug therapy
CPT/HCPCS: 36415; 71045; 80053; 83735; 83880; 84484; 85025

== ENCOUNTER 2025-03-28 18:55 | Emergency (ER) | payer MEDICAID ==
[~2025-03-28] VITALS: Ht 188 cm; Wt 137.9 kg
[~2025-03-28 18:55] MED LIST changes: +LISI20TA56 PO; +POTA-228 PO
[2025-03-28 18:56] VITALS: BP 135/103; TEMP 98.5
--- NOTE | 2025-03-28 20:16 | ED.PDOC ---
History of Present Illness(SKN HPI Comments C/C OF A WOUND TO RIGHT FOREARM X 2 DAYS. SWELLING NOTED TO RIGHT ARM. PT STATES THE WOUND DID DRAIN YELLOWISH DISHCARGE TODAY. PATIENT WAS TOLD BY HIS NURSE EARLIER TODAY TO COME IN FEELS THAT MIGHT BE INFECTED. REPORTS BURNING AND STINGING AT SITE. REPORTS NO FEVER, CHILLS, NAUSEA, VOMITING OR ANY OTHER CONCERNS. Chief Complaint: Wound Check Time Seen by MD: 19:12 Primary Care Provider: CAREY History of Present Illness: Nurses Notes, Medications, Allergies Allergies: Coded Allergies: Bee Venom (Verified Allergy, Unknown, 04/10/24) Penicillins (Verified Allergy, Unknown, 04/10/24) Home Meds Active Scripts Doxycycline Hyclate (Doxycycline Hyclate) 100 Mg Cap, 100 MG PO BID for 7 Days, #14 CAP Prov:EVANGELIST SMITHP 03/28/25 Lisinopril (Lisinopril) 20 Mg Tab, 1 TAB PO DAILY, #90 TAB 1 Refill Prov:ALFREDA SHANNON MD 03/15/25 Potassium Chloride (Potassium Chloride ER) 10 Meq Tab, 10 MEQ PO BID for 60 Days, #120 TAB Prov:ALFREDA SHANNON MD 03/15/25 Methylprednisolone (Medrol Dosepak) 4 Mg Silas, 4 MG PO UD for 6 Days, #21 TAB 1 Refill UAD Prov:EVANGELIST SMITHP 01/24/25 Methylprednisolone (Medrol Dosepak) 4 Mg Silas, 4 MG PO UD for 6 Days, #21 TAB UAD Prov:EVANGELIST SMITH 04/10/24 Methocarbamol (Methocarbamol) 750 Mg Tab, 1 TAB PO HS PRN for 5 Days, #5 TAB Prov:EVANGELIST SMITH 04/05/24 Methylprednisolone (Medrol Dosepak) 4 Mg Silas, 4 MG PO UD for 6 Days, #21 TAB UAD Prov:EVANGELIST SMITHP 04/05/24 Information Source: Patient Mode of Arrival: Ambulatory Past Medical History PAST MEDICAL HISTORY: Cancer, COPD, HTN Surgical History: Denies all surgeries Family History Family History: Unknown Social History Smoker: Non-Smoker Alcohol: Denies ETOH Use Drugs: Denies Drug Use Lives In: Home All Other Systems: Reviewed and Negative (See HPI) Physical Exam General Appearance: No Apparent Distress, Normal HEENT: Normal ENT Inspection, Pharynx Normal, TMs Normal Neck: Full Range of Motion, Non-Tender Respiratory: Lungs Clear, No Respiratory Distress, Normal Breath Sounds Cardiovascular: No Edema, No JVD, No Murmur, No Gallop, Normal Peripheral Pulses, Regular Rate/Rhythm Breast Exam: Deferred Gastrointestinal: No Organomegaly, Non Tender, No Pulsatile Mass, Normal Bowel Sounds, Soft Genitalia: Deferred Pelvic: Deferred Rectal: Deferred Extremities: Normal capillary refill, Normal range of motion, Non-tender, Pedal edema (TRACE) Musculoskeletal : Apperance: Normal Neurologic: Alert, No Motor Deficits, Normal Affect, Normal Mood, No Sensory Deficits Cerebellar Function: Normal Reflexes: NOT DONE Skin: Dry, Normal Color, Warm, Wounds (ULCERATIVE WOUND WITH SURROUNDING ERYTHEMA TRACE EDEMA RIGHT MID POSTERIOR FOREARM. NO NOTED DRAINAGE. NO NOTED STREAKING) Lymphatic: No Adenopathy Was a procedure done? Was a procedure done?: No Differential Diagnosis (INTG) Differential Diagnosis: Abrasion, Cellulitis, Contusion, Puncture Wound Differential Diagnosis: Abscess X-Ray, Labs, Meds, VS Vital Signs Date Time Temp Pulse Resp B/P (MAP) Pulse Ox O2 Delivery O2 Flow Rate FiO2 03/28/25 18:56 98.5 93 16 135/103 96 98.5 X-Ray, Labs, Meds, VS Comment Script trial of antibiotics and NSAID. Advised to take medication as prescribed side effects discussed. Advised to follow up with his PCP in two days, urgent care, or back in the ER for wound re-evaluation. Advised to keep dressing on, and clean change twice daily. Patient was also advised to return to the ER for increasing pain, numbness, weakness, swelling, fever or chills. Patient indicates understanding and agrees with discharge plan of care. Time of 1ST Reevaluation: 19:30 Reevaluation 1ST: Unchanged Time of 2ND Reevaluation: 20:20 Reevaluation 2ND: Improved Patient Education/Counseling: Diagnosis, Treatment, Need For Follow Up Family Education/Counseling: No Family Present SEPSIS Sepsis Screen Date sepsis recognized/suspect: Mar 28, 2025 Time Sepsis recognized/suspect: 1855 Recent Procedure: No On Antibiotic Therapy: No Respiratory Rate >20: No Heart Rate >90: Yes Temp<36 C (96.8 F) or >38.3 C: No SBP <90 or MAP <65 mmHG: No New Acute Mental Status Change: No Is the patient on CPAP, BIPAP,: No Physician Orders Hydrocodone-Acet 5/325mg Tab ([place] 32 (03/28/25 20:30) Ceftriaxone Sodium (Rocephin) (03/28/25 20:30) Vital Signs Date Time Temp Pulse Resp B/P (MAP) Pulse Ox O2 Delivery O2 Flow Rate FiO2 03/28/25 18:56 98.5 93 16 135/103 96 98.5 Departure 1 Departure Time of Disposition: 20:19 Impression: Primary Impression: Wound infection Disposition: HOME / SELF CARE / HOMELESS Condition: Stable e-Prescriptions Doxycycline Hyclate (Doxycycline Hyclate) 100 Mg Cap 100 MG PO BID for 7 Days, #14 CAP Prov: EVANGELIST SMITH 03/28/25 Discharged With: Self Critical Care Note Critical Care Time?: No Stability Stability form required: EVANGELIST Perkins Mar 28, 2025 20:16
[2025-03-28] MEDS ORDERED: DOXY100C4 PO (20:22)
[2025-03-28 20:31] VITALS: PULSE 93; RESP 16; O2SAT 96
[2025-03-28] MEDS: cefTRIAXone SOD 1,000 MG VL IM ONE (20:31)
[2025-03-28] MEDS: HYDROcodone-ACET 5/325MG TAB PO ONE (20:31)
== END 2025-03-28 20:52 | disposition home or self-care (01) ==
LOC: ER 18:55
DX: L08.9 Local infection of the skin and subcutaneous tissue, unspecified (principal); J44.9 Chronic obstructive pulmonary disease, unspecified; I10 Essential (primary) hypertension; Z79.899 Other long term (current) drug therapy; Z88.0 Allergy status to penicillin; Z91.030 Bee allergy status
CPT/HCPCS: 96372; 99283; J0696

== ENCOUNTER 2025-04-24 18:43 | Emergency (ER) | payer MEDICAID ==
[~2025-04-24] VITALS: Ht 188 cm; Wt 135.7 kg
--- NOTE | 2025-04-24 20:05 | ED.PDOC ---
SOB-HPI HPI Comments 50-year-old obese male presents with chief complaint of cough. Patient reports onset of nonproductive cough, history. He states on having a coughing fit, today, while returning home, and developing bilateral chest soreness and lightheadedness. Denies any further acute symptoms. Past medical history: Asthma, COPD, sleep apnea, white matter disease, Coronary artery disease, [place], lower extremity vascular disease and cellulitis, left kidney cancer, right renal failure, prediabetes, prehypertension Past surgical history: Denies Surgical history: Tobacco cigarette use SCHMELZ: OF, CHEST SORENESS FROM COUGH HPI: Poor Historian. REVIEW OF SYSTEMS: CONSTITUTIONAL: Denies acute: fever, diaphoresis, chills, HEAD: Denies acute: headache, photophobia Eyes: Denies acute: Double vision, vision loss, eye pain, eye discharge. EARS: Denies acute: tinnitus, hearing loss, ear discharge, ear pain, THROAT: Denies acute: sore throat, swelling, difficulty swallowing , pain with swallowing, change in voice. NECK: Denies acute: neck pain, neck swelling, stiff neck. HEART: Denies acute : palpitations, LUNGS: Denies acute: , wheezing, , hemoptysis ABDOMEN: Denies acute: abdominal pain, Nausea, Vomiting, diarrhea, melena , hematemesis, hematochezia SKIN: Denies acute: rash, redness, lesions, itchiness. EXTREMITIES: Denies acute: calf pain, numbness, tingling, weakness, denies pain in extremity. Denies acute: Low back pain. Neuro: Denies acute: focal neurological deficit, motor or sensory focal neurological deficit, tremors, seizure like activity, confusion, dizziness, change in mental status, loss of bowel or bladder function, cauda equina like symptoms. : Denies acute: dysuria, hematuria, flank pain, increase in urinary frequency. PSYCH: Denies acute: hallucination, suicidal ideation, homicidal ideation. PHYSICAL EXAM: General: -----mild---acute distress, awake and alert. Head: normocephalic, atraumatic. No raccoon's eyes, no jovel sign. Neck: supple, trachea is midline, no swelling. Throat: Normal phonation. Eyes:, no erythema, no purulent discharge, no proptosis, no icterus. Heart: regular rate, regular rhythm, no significant murmur appreciated. Lungs: no apparent respiratory distress, Able to speak in full sentences. No wheezing, no rhonchi, no crackles. No stridors Clear to auscultation bilaterally. Abdomen: non tender to palpation, non distended, soft, no guarding, no rebound, + bowel sounds. Neuro: Awake, Alert, oriented to name, self, situation, follows commands GCS=15. Speech is normal. Skin: no petechia, no purpura, no cyanosis, non-pale, not jaundice. Lower extremities: --trace- Pitting edema no deformity, no focal swelling, no calf TTP. Makes eye contact. moves all four extremities. Face: no apparent facial droop. Ambulating in the ED with the a cane. ED COURSE: DISCLAIMER: This medical document was created using an electronic medical record system with voice recognition software and computerized dictation system. Although this document has been carefully reviewed, there might still be some phonetic and typographical errors. Occasional wrong-word or "sound-alike" substitutions may have occurred due to the inherent limitations of voice recognition software. These areas are purely typographical due to imperfections of the software programs and do not reflect any compromise in the patient's medical care. Please read the chart carefully and recognize, using context, where these substitutions have occurred. Chief Complaint: Cough Time Seen by MD: 20:00 Primary Care Provider: CAREY Reviewed notes: Allergies Information Source: Patient Mode of Arrival: Ambulatory Past Medical History PAST MEDICAL HISTORY: Cancer, COPD, HTN Surgical History: Denies all surgeries Family History Family History: Unknown Social History Smoker: Non-Smoker Alcohol: Denies ETOH Use Drugs: Denies Drug Use Lives In: Home Was a procedure done? Was a procedure done?: No Differential Dx Differential Diagnosis: Other (DDx include ACS, unstable angina, anxiety, PE, pneumothroax, neoplasm, cardiac ischemia, COPD, asthma, CHF, pleural effusion, tobacco abuse, pneumonia, hypoxia, hypercapnia, anemia., infection/sepsis., pulmonary edema. Asthma, Cardiac tamponade, infection.) X-Ray, Labs, Meds, VS Vital Signs Date Time Temp Pulse Resp B/P (MAP) Pulse Ox O2 Delivery O2 Flow Rate FiO2 04/25/25 00:16 98.3 70 19 129/79 (96) 93 98.3 04/24/25 20:47 98 Room Air* 0 21 04/24/25 20:42 98.1 88 18 180/88 (118) 98 98.1 04/24/25 20:22 98 Room Air 0 04/24/25 20:12 18 97 Room Air* 0 04/24/25 18:50 98.3 86 17 145/110 95 98.3 Lab Test 04/24/25 21:04 04/24/25 20:07 Range/Units Troponin I High Sensitivity < 3 L 3 L </=54 ng/L White Blood Count 9.4 4.4-10.8 10^3/uL Red Blood Count 5.41 4.5-5.90 10^6/uL Hemoglobin 17.0 13.5-17.5 g/dL Hematocrit 48.9 41.0-53.0 % Mean Corpuscular Volume 90.4 80.0-100.0 fL Mean Corpuscular Hemoglobin 31.5 28.0-32.0 pg Mean Corpuscular Hemoglobin Concent 34.8 32.0-36.0 g/dL Red Cell Distribution Width 13.7 11.8-14.3 % Platelet Count 257 140-450 10^3/uL Mean Platelet Volume 8.9 6.9-10.8 fL Neutrophils (%) (Auto) 72.8 37.0-80.0 % Lymphocytes (%) (Auto) 18.2 10.0-50.0 % Monocytes (%) (Auto) 7.3 0.0-12.0 % Eosinophils (%) (Auto) 0.9 0.0-7.0 % Basophils (%) (Auto) 0.8 0.0-2.0 % Neutrophils # (Auto) 6.9 1.6-8.6 10 ^3/uL Lymphocytes # (Auto) 1.7 0.4-5.4 10 ^3/uL Monocytes # (Auto) 0.7 0-1.3 10 ^3/uL Eosinophils # (Auto) 0.1 0-0.8 10 ^3/uL Basophils # (Auto) 0.1 0-0.2 10 ^3/uL Nucleated Red Blood Cells 0.0 % Sodium Level 142 136-145 mmol/L Potassium Level 3.8 3.5-5.1 mmol/L Chloride Level 104 98-107 mmol/L Carbon Dioxide Level 28 20-31 mmol/L Anion Gap 10 5-15 Blood Urea Nitrogen 10 9-23 mg/dL Creatinine 1.00 0.700-1.30 mg/dL Glomerular Filtration Rate Calc 92 >90 mL/min BUN/Creatinine Ratio 10.0 10.0-20.0 Serum Glucose 81 74-106 mg/dL Lactic Acid Level 1.1 0.4-2.0 mmol/L Calcium Level 9.7 8.7-10.4 mg/dL Total Bilirubin 0.6 0.2-1.0 mg/dL Aspartate Amino Transferase (AST) 23 13-40 U/L Alanine Aminotransferase (ALT) 28 7-40 U/L Alkaline Phosphatase 68 46-116 U/L B-Type Natriuretic Peptide 10.17 0-100 pg/mL Total Protein 7.6 5.7-8.2 g/dL Albumin 4.9 H 3.2-4.8 g/dL Current Medications Medications (Trade) Dose Ordered Sig/Radha Route Start Time Stop Time Status Last Admin Albuterol (Ventolin Medneb) 2.5 mg ONCE ONCE NEB 04/24/25 20:00 04/24/25 20:01 DC 04/24/25 20:09 Ipratropium Thorp (Atrovent Medneb) 1 mg ONCE ONCE NEB 04/24/25 20:00 04/24/25 20:01 DC 04/24/25 20:09 [place] [address] Ph: [phone] DIAGNOSTIC IMAGING Diagnostic Imaging Report : [id number] Signed PATIENT: MIHAI DEL ROSARIO ACCT: [id number] UNIT: [id number] : 1975 LOC: ER ROOM / BED: / AGE / SEX: 50 / M ADM STATUS: REG ER SERVICE 54 ORDERING PHYSICIAN: PIYUSH RENO DO PROCEDURE(s): CXRP - CHEST PORTABLE REASON: cough ORDER NUMBER(s): [id number], ACCESSION NUMBER(s): [id number] EXAM: XY CHEST PORTABLE HISTORY: cough TECHNIQUE: 1 view of the chest COMPARISON: XY CHEST XRAY 1 VIEW on DOS: 03/15/25 FINDINGS/IMPRESSION: LUNGS: Hazy possible alveolar opacity in the left lung base, unchanged from prior examination. Coursing azygous fissure and azygous vein. MEDIASTINUM: Unremarkable. BONES: No acute osseous abnormality. OTHER: None. ATED BY: ARRON BARNES MD DICTATED DATE/TIME: 04/24/252022 SIGNED BY: ARRON BARNES MD SIGNED DATE/TIME: 04/24/252022 CC: Time of 1ST Reevaluation: 20:00 Reevaluation 1ST: Unchanged Patient Education/Counseling: Diagnosis, Treatment Family Education/Counseling: No Family Present Comments MDM: patient presented with the above HPI.--cough----workup was initiated. patient was found with the above mentioned diagnosis. the following medications were ordered: please refer to order lists of meds and tests obtained by myself Dr. Reno. Patient ED course and VS have been stabilized. Patient has been reassessed in the ED and remained in a stable condition. Pertinent incidental findings were discussed with the patient and/or family. Patient/family voices understanding and is agreeable with plan. Patient has been observed in the ED adequate length of time to insure improvement/stability. Escalation of care considered: Consideration of escalation to observation or admission Patient was given DuoNeb treatment and Solu-Medrol but I think he read declined the Solu-Medrol. Patient was DISCHARGED home in a stable condition. All the reports of any imaging studies that were ordered by myself were reviewed by myself. SEPSIS Sepsis Screen Date sepsis recognized/suspect: Apr 24, 2025 Time Sepsis recognized/suspect: 1849 Recent Procedure: No On Antibiotic Therapy: No Respiratory Rate >20: No Heart Rate >90: No Temp<36 C (96.8 F) or >38.3 C: No SBP <90 or MAP <65 mmHG: No New Acute Mental Status Change: No Is the patient on CPAP, BIPAP,: No Physician Orders Food Inspector (04/24/25 ) Chest Portable (04/24/25 19:55) Electrocardigram (04/24/25 19:55) Vital Signs Date Time Temp Pulse Resp B/P (MAP) Pulse Ox O2 Delivery O2 Flow Rate FiO2 04/25/25 00:16 98.3 70 19 129/79 (96) 93 98.3 04/24/25 20:47 98 Room Air* 0 21 04/24/25 20:42 98.1 88 18 180/88 (118) 98 98.1 04/24/25 20:22 98 Room Air 0 04/24/25 20:12 18 97 Room Air* 0 21 04/24/25 18:50 98.3 86 17 145/110 95 98.3 Laboratory Tests Test 04/24/25 20:07 Lactic Acid Level 1.1 mmol/L (0.4-2.0) White Blood Count 9.4 10^3/uL (4.4-10.8) Departure 1 Departure Time of Disposition: 00:03 Impression: Primary Impression: Cough in adult Disposition: 01 HOME / SELF CARE / HOMELESS Condition: Stable Additional Instructions: Additional instructions: Please read all instructions provided in this packet carefully. You MUST follow-up with your primary care/family doctor in 1 to 2 days. If you are unable to see your primary care/family doctor, please return to our emergency room for re-assessment and re-evaluation in 1 to 2 days. Return to the emergency room here in our facility or to the nearest ER [facility] if your symptoms change or worsen. CONSULTATIONS: you MUST Follow-up for consultation as soon as possible with: --cardiology and pulmonology in 1-2 days. Please call for appointment-- You MUST call the consultants office yourself to make an appointment. You may need to arrange that through your insurance and/or your primary/family doctor. If you are unable to see the hr shared services consultant in 1 to 2 days, you must return to our emergency room (or any other ER of your choice) for re-assessment and re- evaluation. Adequate fluid hydration. Although you have been discharged from the Emergency Department, this does not mean that you have a "clean bill of health". No definitive diagnosis for your symptoms has been made today. It is possible that you are in the process of developing a serious illness. This is why you must return to the ED without fail if any new or worsening symptoms develop. Below is a copy of your radiological report for follow up: [address] [address] Ph: [phone] DIAGNOSTIC IMAGING Diagnostic Imaging Report : [id number] Signed PATIENT: MIHAI DEL ROSARIO ACCT: [id number] UNIT: [id number] : 1975 LOC: ER ROOM / BED: / AGE / SEX: 50 / M ADM STATUS: REG ER SERVICE 54 ORDERING PHYSICIAN: PIYUSH RENO DO PROCEDURE(s): CXRP - CHEST PORTABLE REASON: cough ORDER NUMBER(s): [id number], ACCESSION NUMBER(s): [id number] EXAM: XY CHEST PORTABLE HISTORY: cough TECHNIQUE: 1 view of the chest COMPARISON: XY CHEST XRAY 1 VIEW on DOS: 03/15/25 FINDINGS/IMPRESSION: LUNGS: Hazy possible alveolar opacity in the left lung base, unchanged from prior examination. Coursing azygous fissure and azygous vein. MEDIASTINUM: Unremarkable. BONES: No acute osseous abnormality. OTHER: None. ATED BY: ARRON BARNES MD DICTATED DATE/TIME: 04/24/252022 SIGNED BY: ARRON BARNES MD SIGNED DATE/TIME: 04/24/252022 CC: Discharged With: Self Critical Care Note Critical Care Time?: No I personally scribed for PIYUSH RENO DO ([email or web address]) on 04/24/25 at 20:05. Electronically submitted by Catrachito Simental ([email or web address]). I personally scribed for PIYUSH RENO DO ([email or web address]) on 04/24/25 at 21:34. Electronically submitted by Catrachito Simental ([email or web address]). PIYUSH RENO DO Apr 24, 2025 20:05
[2025-04-24] MEDS ORDERED: IPRATROPIUM BROM 0.5 MG/2.5ML INH SOL ONE (20:08)
[2025-04-24] MEDS ORDERED: ALBUTEROL SULF 2.5 MG/0.5ML(0.5%) NEB SOLN ONE (20:08)
[2025-04-24] MEDS: ALBUTEROL SULF 2.5 MG/0.5ML(0.5%) NEB SOLN NEB ONE (20:09)
[2025-04-24] MEDS: IPRATROPIUM BROM 0.5 MG/2.5ML INH SOL NEB ONE (20:09)
[2025-04-24 20:25] LABS: Hematocrit 48.9 % (41.0-53.0); Hemoglobin 17.0 g/dL (13.5-17.5); Mean Corpuscular Hemoglobin 31.5 pg (28.0-32.0); Mean Corpuscular Volume 90.4 fL (80.0-100.0); Nucleated Red Blood Cells % 0.0 %
--- NOTE | 2025-04-24 20:26 | DVH ---
EXAM: XY CHEST PORTABLE HISTORY: cough TECHNIQUE: 1 view of the chest COMPARISON: XY CHEST XRAY 1 VIEW on DOS: 03/15/25 FINDINGS/IMPRESSION: LUNGS: Hazy possible alveolar opacity in the left lung base, unchanged from prior examination. Coursing azygous fissure and azygous vein. MEDIASTINUM: Unremarkable. BONES: No acute osseous abnormality. OTHER: None.
[2025-04-24 20:42] LABS: Alanine Aminotransferase 28 U/L (7-40); Alkaline Phosphatase 68 U/L (46-116); Anion Gap 10 (5-15); BUN/Creatinine Ratio 10.0 (10.0-20.0); Bilirubin, Total 0.6 mg/dL (0.2-1.0); Blood Urea Nitrogen 10 mg/dL (9-23); Calcium 9.7 mg/dL (8.7-10.4); Carbon Dioxide 28 mmol/L (20-31); Chloride 104 mmol/L (98-107); Glucose 81 mg/dL (74-106); Potassium 3.8 mmol/L (3.5-5.1); Sodium 142 mmol/L (136-145); Total Protein 7.6 g/dL (5.7-8.2)
[2025-04-24] MEDS: methylPREDNISolone SOD SUCC 125 MG/2 ML VL IV ONE (20:42)
[2025-04-24 20:47] VITALS: O2SAT 98
[2025-04-24 20:47] LABS: Albumin 4.9 g/dL (3.2-4.8)
[2025-04-25 00:16] VITALS: BP 129/79; PULSE 70; RESP 19; TEMP 98.3; O2SAT 93
== END 2025-04-25 00:16 | disposition home or self-care (01) ==
LOC: ER 18:43
DX: R05.9 Cough, unspecified (principal); I25.10 Atherosclerotic heart disease of native coronary artery without angina pectoris; I10 Essential (primary) hypertension; J44.89 Other specified chronic obstructive pulmonary disease; Z79.899 Other long term (current) drug therapy
CPT/HCPCS: 36415; 71045; 80053; 83605; 83880; 84484; 85025; 94640

== ENCOUNTER 2025-05-04 19:38 | Emergency (ER) | payer MEDICAID ==
[~2025-05-04] VITALS: Ht 188 cm; Wt 134.8 kg
[2025-05-04 21:18] VITALS: BP 137/83; PULSE 87; RESP 20; TEMP 98.8; O2SAT 96
--- NOTE | 2025-05-04 21:31 | ED.PDOC ---
GI ASSESSMENT HPI Comments 50-year-old male presents to ER with complaints of flank pain x2 days. Patient reports he has been experiencing right-sided flank pain with associated "swelling" to this region x2 days. He rates his current pain a 9/10 to right flank with intermittent radiation to right lower abdomen. Denies use of medications for current symptoms and presents to ER ambulatory on arrival, with steady gait, in no distress. Denies fever, body aches, chills, nausea/vomiting, injury, chest pain, changes in urination or any further symptoms/complaints Chief Complaint: Back Pain Time Seen by MD: 19:57 Primary Care Provider: CAREY Reviewed Notes: Nurses Notes, Medications, Allergies Allergies: Coded Allergies: Bee Venom (Verified Allergy, Unknown, 04/10/24) Penicillins (Verified Allergy, Unknown, 04/10/24) Home Meds Active Scripts Acetaminophen (Acetaminophen) 500 Mg Tab, 500 MG PO Q4HPRN, #30 TAB Prov:JOSE ALFREDO MALDONADO 05/04/25 Lisinopril (Lisinopril) 20 Mg Tab, 1 TAB PO DAILY, #90 TAB 1 Refill Prov:ALFREDA SHANNON MD 03/15/25 Potassium Chloride (Potassium Chloride ER) 10 Meq Tab, 10 MEQ PO BID for 60 Days, #120 TAB Prov:ALFREDA SHANNON MD 03/15/25 Methylprednisolone (Medrol Dosepak) 4 Mg Silas, 4 MG PO UD for 6 Days, #21 TAB 1 Refill UAD Prov:EVANGELIST SMITHP 01/24/25 Methylprednisolone (Medrol Dosepak) 4 Mg Silas, 4 MG PO UD for 6 Days, #21 TAB UAD Prov:EVANGELIST SMITHP 04/10/24 Methocarbamol (Methocarbamol) 750 Mg Tab, 1 TAB PO HS PRN for 5 Days, #5 TAB Prov:EVANGELIST SMITH [employer]ING [employer] 04/05/24 Methylprednisolone (Medrol Dosepak) 4 Mg Silas, 4 MG PO UD for 6 Days, #21 TAB UAD Prov:EVANGELIST SMITH [employer] 04/05/24 Information Source: Patient Mode of Arrival: Ambulatory Past Medical History PAST MEDICAL HISTORY: Cancer, COPD, HTN Surgical History: Denies all surgeries Family History Family History: Unknown Social History Smoker: Non-Smoker Alcohol: Denies ETOH Use Drugs: Denies Drug Use Lives In: Home Constitutional: denies: chills, diaphoresis, fatigue, fever, malaise, sweats, weakness, others EENTM: denies: blurred vision, double vision, ear bleeding, ear discharge, ear drainage, ear pain, ear ringing, eye pain, eye redness, hearing loss, mouth pain, mouth swelling, nasal discharge, nose bleeding, nose congestion, nose pain, photophobia, tearing, throat pain, throat swelling, voice changes, others Respiratory: denies: cough, hemoptysis, orthopnea, SOB at rest, shortness of breath, SOB with excertion, stridor, wheezing, others Cardiovascular: denies: chest pain, dizzy spells, diaphoresis, Dyspnea on exertion, edema, irregular heart beat, left arm pain, lightheadedness, palpitations, PND, syncope, others Gastrointestinal: reports: others (As stated in HPI) Genitourinary: denies: burning, dysuria, flank pain, frequency, hematuria, incontinence, penile discharge, penile sore, pain, testicle pain, testicle swelling, urgency, others Neurological: denies: dizziness, fainting, headache, left sided numbness, left sided weakness, numbness, paresthesia, pre-existing deficit, right sided numbness, right sided weakness, seizure, speech problems, tingling, tremors, weakness, others Musculoskeletal: reports: others (As stated in HPI) Integumetry: denies: bruises, change in color, change in hair/nails, dryness, laceration, lesions, lumps, rash, wounds, others Allergic/Immunocompromised: denies: Difficulty Healing, Frequent Infections, Hives, Itching, others Hematologic/Lymphatic: denies: anemia, blood clots, easy bleeding, easy bruising, swollen glands, others Endocrine: denies: excessive hunger, excessive sweating, excessive thirst, excessive urination, flushing, intolerance to cold, intolerance to heat, unexplained weight gain, unexplained weight loss, others Psychiatric: denies: anxiety, bipolar disorder, depression, hopeless, panic disorder, schizophrenia, sleepless, suicidal, others Physical Exam General Appearance: No Apparent Distress, Obese HEENT: PERRL/EOMI Neck: Full Range of Motion, Non-Tender, Normal Respiratory: Chest Non-Tender, Lungs Clear, No Accessory Muscle Use, No Respiratory Distress, Normal Breath Sounds Cardiovascular: No Murmur, No Gallop, Regular Rate/Rhythm Breast Exam: Deferred Gastrointestinal: No Organomegaly, Non Tender, No Pulsatile Mass, Normal Bowel Sounds, Soft Genitalia: Deferred Pelvic: Deferred Rectal: Deferred Extremities: Normal capillary refill, Normal range of motion Musculoskeletal : Extremity Location: Back (TTP to right flank noted. No CVA tenderness noted bilaterally. No swelling/skin changes appreciated) Neurologic: Alert, No Motor Deficits, Normal Affect, Normal Mood, No Sensory Deficits Cerebellar Function: Normal Reflexes: Normal Skin: Dry, Normal Color, Warm Peripheral Pulses: 2+ Radial (R), 2+ Radial (L), 2+ Brachial (R), 2+ Brachial (L) Lymphatic: No Adenopathy Was a procedure done? Was a procedure done?: No Sedation Sedation?: No GI differential Dx Differential Diagnosis: GI hemorrhage, Trauma intraabdominal, Urinary Obstruction, UTI, Urolithiasis X-Ray, Labs, Meds, VS Vital Signs Date Time Temp Pulse Resp B/P (MAP) Pulse Ox O2 Delivery O2 Flow Rate FiO2 05/04/25 21:18 Room Air* 0 21 05/04/25 21:18 98.8 87 20 137/83 (101) 96 98.8 05/04/25 19:43 98.8 87 20 137/83 96 98.8 Lab Test 05/04/25 21:30 05/04/25 21:15 Range/Units White Blood Count 10.3 4.4-10.8 10^3/uL Red Blood Count 5.57 4.5-5.90 10^6/uL Hemoglobin 17.2 13.5-17.5 g/dL Hematocrit 50.2 41.0-53.0 % Mean Corpuscular Volume 90.1 80.0-100.0 fL Mean Corpuscular Hemoglobin 31.0 28.0-32.0 pg Mean Corpuscular Hemoglobin Concent 34.4 32.0-36.0 g/dL Red Cell Distribution Width 13.5 11.8-14.3 % Platelet Count 266 140-450 10^3/uL Mean Platelet Volume 8.1 6.9-10.8 fL Neutrophils (%) (Auto) 63.8 37.0-80.0 % Lymphocytes (%) (Auto) 25.7 10.0-50.0 % Monocytes (%) (Auto) 8.4 0.0-12.0 % Eosinophils (%) (Auto) 1.3 0.0-7.0 % Basophils (%) (Auto) 0.8 0.0-2.0 % Neutrophils # (Auto) 6.6 1.6-8.6 10 ^3/uL Lymphocytes # (Auto) 2.7 0.4-5.4 10 ^3/uL Monocytes # (Auto) 0.9 0-1.3 10 ^3/uL Eosinophils # (Auto) 0.1 0-0.8 10 ^3/uL Basophils # (Auto) 0.1 0-0.2 10 ^3/uL Nucleated Red Blood Cells 0.1 % Sodium Level 141 136-145 mmol/L Potassium Level 3.8 3.5-5.1 mmol/L Chloride Level 105 98-107 mmol/L Carbon Dioxide Level 27 20-31 mmol/L Anion Gap 9 5-15 Blood Urea Nitrogen 10 9-23 mg/dL Creatinine 0.95 0.700-1.30 mg/dL Glomerular Filtration Rate Calc 98 >90 mL/min BUN/Creatinine Ratio 10.5 10.0-20.0 Serum Glucose 82 74-106 mg/dL Calcium Level 9.5 8.7-10.4 mg/dL Urine Color Yellow Yellow Urine Clarity Clear Clear Urine pH 6.5 5.0-9.0 Urine Specific [place] 1.019 1.001-1.035 Urine Protein Negative Negative Urine Ketones Negative Negative Urine Blood Negative Negative /uL Urine Nitrite Negative Negative Urine Bilirubin Negative Negative Urine Urobilinogen Normal Negative mg/dL Urine Leukocyte Esterase Negative Negative /uL Urine RBC 5 0 - 3 /hpf Urine Microscopic WBC < 1 0-3 /HPF Urine Squamous Epithelial Cells None seen <5 /hpf Urine Bacteria None seen None Seen /hpf Urine Glucose Normal Normal mg/dL PATIENT: MIHAI DEL ROSARIO RACCT: [id number]: [id number] : 1975 LOC: ER ROOM / BED: / AGE / SEX: 50 / M ADM STATUS: REG ER SERVICE 13 ORDERING PHYSICIAN: JOSE ALFREDO MALDONADO PROCEDURE(s): ABPL - CT AB PEL WO CON-NO ORAL OR IV REASON: right flank pain ORDER NUMBER(s): [id number], ACCESSION NUMBER(s): [id number] Exam: CT CT AB PEL WO CON-NO ORAL OR IV History: right flank pain Comparison Study: None TECHNIQUE: Multidetector CT of the abdomen and pelvis was performed from lung bases to pubic symphysis. Imaging was performed without IV contrast. Axial, coronal, and sagittal multiplanar reformats were obtained from the axial data set by the technologist. RADIATION DOSE: CTDI vol 24.9 mGy. DLP 1380.0 mGy.cm Findings: Limited evaluation of the solid organs in the absence of IV contrast. Lungs: There is minimal basilar atelectasis/ scarring. Liver: Unremarkable. Spleen: Unremarkable. Pancreas: Unremarkable. Gallbladder: Unremarkable. Adrenals: Unremarkable Kidneys: Left renal cyst. No hydronephrosis. Pelvic Viscera: Unremarkable. Vasculature: Unremarkable. Retroperitoneum: Unremarkable. Bowel: No bowel obstruction. The appendix is normal. Musculoskeletal: Unremarkable. Soft tissues: Unremarkable Impression: 1. No acute abdominopelvic abnormality. ATED BY: ANUJ NGUYỄN MD DICTATED DATE/TIME: 05/04/252201 SIGNED BY: ANUJ NGUYỄN MD SIGNED DATE/TIME: 05/04/252201 CC: CBC reviewed-unremarkable BMP reviewed - unremarkable Urinalysis reviewed - unremarkable CT abdomen/pelvis without contrast reviewed Advised to drink plenty of fluids Advised to follow up with PCP in 1-2 days Patient verbalized understanding and agreeable with current plan of care Advised to return to ER immediately if symptoms worsen Images Reviewed?: Images reviewed and evaluated by me Time of 1ST Reevaluation: 21:12 Reevaluation 1ST: N/A Patient Education/Counseling: Diagnosis, Treatment, Prognosis, Need For Follow Up Family Education/Counseling: No Family Present SEPSIS Sepsis Screen Date sepsis recognized/suspect: May 04, 2025 Time Sepsis recognized/suspect: 1942 Recent Procedure: No On Antibiotic Therapy: No Respiratory Rate >20: No Heart Rate >90: No Temp<36 C (96.8 F) or >38.3 C: No SBP <90 or MAP <65 mmHG: No New Acute Mental Status Change: No Is the patient on CPAP, BIPAP,: No Physician Orders Ct Ab Pel Wo Con-No Oral Or Iv (05/04/25 21:14) Vital Signs Date Time Temp Pulse Resp B/P (MAP) Pulse Ox O2 Delivery O2 Flow Rate FiO2 05/04/25 21:18 Room Air* 0 21 05/04/25 21:18 98.8 87 20 137/83 (101) 96 98.8 05/04/25 19:43 98.8 87 20 137/83 96 98.8 Laboratory Tests Test 05/04/25 21:30 White Blood Count 10.3 10^3/uL (4.4-10.8) Departure 1 Departure Time of Disposition: 22:34 Impression: Primary Impression: Right flank pain Disposition: HOME / SELF CARE / HOMELESS Condition: Stable e-Prescriptions Acetaminophen (Acetaminophen) 500 Mg Tab 500 MG PO Q4HPRN, #30 TAB Prov: JOSE ALFREDO MALDONADO 05/04/25 Discharged With: Self Critical Care Note Critical Care Time?: No Stability Stability form required: No Heart Score Heart Score: Heart Score Response (Comments) Value History N/A 0 EKG N/A 0 Age N/A 0 Risk Factors N/A 0 Troponin N/A 0 Total 0 JOSE ALFREDO MALDONADO May 04, 2025 21:30
[2025-05-04 21:49] LABS: Hematocrit 50.2 % (41.0-53.0); Hemoglobin 17.2 g/dL (13.5-17.5); Mean Corpuscular Hemoglobin 31.0 pg (28.0-32.0); Mean Corpuscular Volume 90.1 fL (80.0-100.0); Nucleated Red Blood Cells % 0.1 %
[2025-05-04 21:54] LABS: Chloride 105 mmol/L (98-107); Potassium 3.8 mmol/L (3.5-5.1); Sodium 141 mmol/L (136-145)
[2025-05-04 21:55] LABS: Anion Gap 9 (5-15); Calcium 9.5 mg/dL (8.7-10.4); Carbon Dioxide 27 mmol/L (20-31)
[2025-05-04 22:00] LABS: BUN/Creatinine Ratio 10.5 (10.0-20.0); Blood Urea Nitrogen 10 mg/dL (9-23); Glucose 82 mg/dL (74-106)
--- NOTE | 2025-05-04 22:04 | DVH ---
Exam: CT CT AB PEL WO CON-NO ORAL OR IV History: right flank pain Comparison Study: None TECHNIQUE: Multidetector CT of the abdomen and pelvis was performed from lung bases to pubic symphysis. Imaging was performed without IV contrast. Axial, coronal, and sagittal multiplanar reformats were obtained from the axial data set by the technologist. RADIATION DOSE: CTDI vol 24.9 mGy. DLP 1380.0 mGy.cm Findings: Limited evaluation of the solid organs in the absence of IV contrast. Lungs: There is minimal basilar atelectasis/ scarring. Liver: Unremarkable. Spleen: Unremarkable. Pancreas: Unremarkable. Gallbladder: Unremarkable. Adrenals: Unremarkable Kidneys: Left renal cyst. No hydronephrosis. Pelvic Viscera: Unremarkable. Vasculature: Unremarkable. Retroperitoneum: Unremarkable. Bowel: No bowel obstruction. The appendix is normal. Musculoskeletal: Unremarkable. Soft tissues: Unremarkable Impression: 1. No acute abdominopelvic abnormality.
[2025-05-04] MEDS ORDERED: ACET500T58 PO (22:11)
[2025-05-04 22:20] LABS: Urine Protein, UAD Negative (Negative)
== END 2025-05-04 22:34 | disposition home or self-care (01) ==
LOC: ER 19:38
DX: R10.9 Unspecified abdominal pain (principal); J44.9 Chronic obstructive pulmonary disease, unspecified; I10 Essential (primary) hypertension; Z79.899 Other long term (current) drug therapy; Z88.0 Allergy status to penicillin
CPT/HCPCS: 36415; 74176; 80048; 81001; 85025